=== PATIENT | female | born 1990 | race Caucasian/White ===

== ENCOUNTER 2016-09-14 19:54 | Emergency (ER) | payer BC, OTHER ==
[2016-09-14 20:22] VITALS: BMI 19.0
--- NOTE | 2016-09-14 21:17 | PDOC ---
History of Present Illness - General Chief Complaint: Palpitations Stated Complaint: PALPITATIONS Time Seen by Provider: 09/14/16 20:55 History Source: Patient - History of Present Illness Initial Comments: 09/14/16 21:13 26 year old female reports fast heart beat on and off since last night. patient returned from vacation reports drinking alcohol throughout for several days. denies chest pain, pleuritic pain, no OCP use. denies substance abuse. reports poor hydration. no pmhx Past History - Travel Traveled outside of the country in the last 30 days: No Close contact w/someone who was outside of country & ill: No - Past Medical History Allergies/Adverse Reactions: Allergies Allergy/AdvReac Type Severity Reaction Status Date / Time No Known Allergies Allergy Verified 09/14/16 20:19 Home Medications: Ambulatory Orders NK [No Known Home Medication] 09/14/16 Other medical history: Pt denies - Psycho/Social/Smoking Cessation Hx Suicidal Ideation: No Smoking History: Never smoked Information on smoking cessation initiated: No Hx Alcohol Use: No Drug/Substance Use Hx: No Substance Use Type: None Cardiac Specific PMH - Complaint Specific PMHX Abdominal Aortic Aneurysm: No Angina: No Cardiac Arrhythmia: No Cardiac Stent: No GERD: No Myocardial Infarction: No Pacemaker: No Pulmonary Embolus: No Valvular Heart Disease: No Peripheral Vascular Disease: No Review of Systems - Review of Systems Able to Perform ROS?: Yes Is the patient limited Portuguese proficient: No HEENTM: No: Symptoms Reported, See HPI, Eye Pain, Blurred Vision, Tearing, Recent change in vision, Double Vision, Cataracts, Ear Pain, Ocular Prothesis, Ear Discharge, Nose Pain, Nose Congestion, Tinnitus, Nose Bleeding, Hearing Loss , Throat Pain, Throat Swelling, Mouth Pain, Dental Problems, Difficulty Swallowing, Mouth Swelling, Other Respiratory: No: Symptoms reported, See HPI, Cough, Orthopnea, Shortness of Breath, SOB with Exertion, SOB at Rest, Stridor, Wheezing, Productive cough, Hemoptysis, Other Cardiac (ROS): Yes: Palpitations. No: Symptoms Reported, See HPI, Chest Pain, Edema, Irregular Heart Rate, Lightheadedness, Syncope, Chest Tightness, Other ABD/GI: No: Symptoms Reported, See HPI, Abdominal Distended, Abd. Pain w/ defecation, Blood Streaked Bowels, Constipated, Diarrhea, Difficulty Swallowing , Nausea, Poor Appetite, Poor Fluid Intake, Rectal Bleeding, Vomiting, Indigestion, Abdominal cramping, Tarry Stools, Other Musculoskeletal: No: Symptoms Reported, See HPI, Back Pain, Gout, Joint Pain, Joint Swelling, Muscle Pain, Muscle Weakness, Neck Pain, Joint Stiffness, Other *Physical Exam - Vital Signs Last Vital Signs Temp Pulse Resp BP Pulse Ox 97.9 F 89 20 137/82 100 09/14/16 20:20 09/14/16 20:20 09/14/16 20:20 09/14/16 20:20 09/14/16 20:20 09/14/16 21:16 - Physical Exam General Appearance: Yes: Appropriately Dressed HEENT: positive: Normal ENT Inspection Respiratory/Chest: positive: Lungs Clear, Normal Breath Sounds Cardiovascular: positive: Regular Rhythm, Regular Rate, S1, S2 Gastrointestinal/Abdominal: positive: Normal Bowel Sounds, Soft Extremity: positive: Normal Capillary Refill, Normal Inspection, Normal Range of Motion Integumentary: positive: Normal Color, Dry, Warm Neurologic: positive: Fully Oriented, Alert, Normal Mood/Affect Heart Score/ECG Review - ECG Intrepretation Rhythm: Regular Rhythm Comment:: 09/14/16 21:46 sinus rhythm with sinus arrythmia Progress Note - Progress Note Progress Note: A: palpitations P: EKG CBC CMP IVF UA urine Medical Decision Making - Medical Decision Making 09/14/16 21:45 patient signed out AMA refuse all blood work and further workup. all risk factors discussed with patient *DC/Admit/Observation/Transfer Diagnosis at time of Disposition: Palpitations - Discharge Dispostion Disposition: AGAINST MEDICAL ADVICE - Referrals Referrals: Alicia Pitt [Primary Care Provider] -
--- NOTE | 2016-09-14 21:41 | PDOC ---
*Physical Exam - Vital Signs Last Vital Signs Temp Pulse Resp BP Pulse Ox 97.9 F 89 20 137/82 100 09/14/16 20:20 09/14/16 20:20 09/14/16 20:20 09/14/16 20:20 09/14/16 20:20 Medical Decision Making - Medical Decision Making 09/14/16 21:40 agree with care from SCOTTY Castrejon *DC/Admit/Observation/Transfer Diagnosis at time of Disposition: Palpitations - Referrals Referrals: Alicia Pitt [Primary Care Provider] - - Patient Instructions - Post Discharge Activity
[2016-09-14 21:48] VITALS: BP 128/88; PULSE 87; TEMP 98.6
--- NOTE | 2016-09-15 10:30 | EKG ---
Test Reason : Blood Pressure : / mmHG Vent. Rate : 074 BPM Atrial Rate : 074 BPM P-R Int : 166 ms QRS Dur : 084 ms QT Int : 394 ms P-R-T Axes : 031 052 027 degrees QTc Int : 437 ms SINUS RHYTHM WITH MARKED SINUS ARRHYTHMIA OTHERWISE NORMAL ECG NO PREVIOUS ECGS AVAILABLE Confirmed by ROMARIO ONTIVEROS, LULY ([id number]) on 09/15/2016 10:30:23 AM Referred By: Confirmed By:LULY DOSS MD
== END 2016-09-14 21:47 | disposition left against medical advice (07) ==
LOC: JER 19:54
DX: R00.2 Palpitations (principal)
CPT/HCPCS: 93005; 93010; 99284-25

== ENCOUNTER 2019-06-17 11:46 | Emergency (ER) | payer SELFPAY ==
[2019-06-17] MEDS ORDERED: ACETAMINOPHEN 325 MG TABLET (FP) PO ONE (11:50)
[2019-06-17 11:51] VITALS: BP 141/85; PULSE 69; TEMP 97.6; BMI 19.8
--- NOTE | 2019-06-17 11:56 | PDOC ---
History of Present Illness - General Chief Complaint: Pain, Acute Stated Complaint: RIGHT FOOT PAIN Time Seen by Provider: 06/17/19 11:50 - History of Present Illness Initial Comments: Sima Gilmore is a 28 y/o female with no reported PMH presenting today with right foot pain. Reports that she was jogging yesterday afternoon when she tripped forward and hurt her right foot. No head trauma/LOC. No heart palpitations or dizziness. She was able to get back up, but reports that the pain has been worsening. Has not taken anything for pain. Reports right mid foot pain. No ankle pain. Not able to bear weight. Reports prior sprains before but no ankle fracture or ligament tears in the past before. Denies knee pain. Denies pain anywhere else. Past History - Past Medical History Allergies/Adverse Reactions: Allergies Allergy/AdvReac Type Severity Reaction Status Date / Time No Known Allergies Allergy Verified 06/17/19 11:47 Home Medications: Ambulatory Orders NK [No Known Home Medication] 09/14/16 COPD: No - Psycho Social/Smoking Cessation Hx Smoking History: Current some day smoker Information on smoking cessation initiated: Yes Hx Alcohol Use: No Drug/Substance Use Hx: No Substance Use Type: None Review of Systems - Review of Systems Comments:: GENERAL/CONSTITUTIONAL: No fever or chills. No weakness._ HEAD, EYES, EARS, NOSE AND THROAT: No change in vision. No change in hearing. No sore throat._ CARDIOVASCULAR: No chest pain or shortness of breath_ RESPIRATORY: Denies cough, hemoptysis_ GASTROINTESTINAL: No nausea, vomiting, diarrhea or constipation._ GENITOURINARY: No dysuria, frequency, or change in urination._ MUSCULOSKELETAL: Reports right mid foot pain. No neck or back pain._ SKIN: No rash_ NEUROLOGIC: No headache, vertigo, loss of consciousness, or change in strength/sensation._ ALLERGIC/IMMUNOLOGIC: No hives or skin allergy._ *Physical Exam - Vital Signs Last Vital Signs Temp Pulse Resp BP Pulse Ox 97.6 F 69 15 141/85 100 06/17/19 11:47 06/17/19 11:47 06/17/19 11:47 06/17/19 11:47 06/17/19 11:47 - Physical Exam GENERAL: Awake, alert, and oriented to person/place/time, in no acute distress_ HEAD: No signs of trauma, normocephalic, atraumatic _ EYES: PERRLA, EOMI, sclera anicteric, conjunctiva clear_ ENT: Hearing grossly normal, nares patent, oropharynx clear without exudates. No uvular deviation. Moist mucosa_ NECK: Normal ROM, supple, no lymphadenopathy, JVD, or masses_ LUNGS: No distress, speaks in full sentences, clear to auscultation bilaterally _ HEART: Regular rate and rhythm, normal S1 and S2, no murmurs appreciated, peripheral pulses normal and equal bilaterally._ ABDOMEN: Soft, nontender, normoactive bowel sounds. No guarding, no rebound. No masses_ EXTREMITIES: Bruising and tenderness over right mid foot. No ankle tenderness. No heel tenderness. Cap refill < 2 sec. Not able to ambulate. No knee tenderness or laxity. No lower extremity swelling. Full ROM throughout bilateral lower extremities. Sensation intact throughout bilateral lower extremities. NEUROLOGICAL: Cranial nerves II through XII grossly intact. Normal speech, normal gait, no focal sensorimotor deficits _ SKIN: Warm, Dry, normal turgor, no rashes or lesions noted_ ED Treatment Course - RADIOLOGY Radiology Studies Ordered: Category Date Time Status ANKLE & FOOT-RIGHT* [RAD] Stat Radiology 06/17/19 11:50 Ordered Medical Decision Making - Medical Decision Making 06/17/19 11:57 28F no reported PMH presenting with right mid foot pain after falling while jogging yesterday. Not able to bear weight. -XR right foot/ankle -tylenol 06/17/19 12:31 XR right foot and ankle shows no fracture or dislocation. Plan to d/c home with ortho f/u, hard sole shoe, crutches. Tylenol PRN. All questions answered. Return precautions given. Pt verbalized understanding and agreement with plan. Discharge - Discharge Information Problems reviewed: Yes Clinical Impression/Diagnosis: Right foot sprain Condition: Stable Disposition: HOME - Admission No - Follow up/Referral Referrals: Fausto Pantoja MD [Staff Physician] - - Patient Discharge Instructions Patient Printed Discharge Instructions: DI for Foot Sprain Additional Instructions: Please make a follow up appointment with Dr. Pantoja (ortho) this week. Please wear your hard sole shoe and uses crutches, and rest, ice, compress your foot. Take Tylenol as needed for pain relief (follow instructions on the package). If you experience any new, worsening, or concerning symptoms, including worsening pain, change in color or temperature of your foot, or any other concerns, please return to the emergency department. - Post Discharge Activity
[2019-06-17] MEDS ORDERED: ACETAMINOPHEN 325 MG TABLET (FP) ONE (11:58)
--- NOTE | 2019-06-17 13:01 | PDOC ---
Attending Attestation - Resident Resident Name: Leo Gracia - ED Attending Attestation I have performed the following: I have examined & evaluated the patient, The case was reviewed & discussed with the resident, I agree w/resident's findings & plan, Exceptions are as noted - HPI HPI: 06/17/19 12:30 28 years old twisted right foot while running Pain is moderate persistent constant worse with ambulation alleviated somewhat by rest. - Physicial Exam PE: 06/17/19 13:01 Vitals: Triage Vital signs reviewed General Appearance: No acute distress, well nourished well developed, Head: Atraumatic, Extremities: Full range of motion to all extremities tenderness to palpation over the front midfoot no swelling no deformity neurovascular tach distally Skin: Warm and dry, no rashes or lesions, no rash, no petechiae Psych: Normal mood, normal affect - Medical Decision Making 06/17/19 13:01 X-rays negative for acute fracture dislocation likely midfoot sprain placed in h lisa sole shoe given crutches provided with orthopedic follow-up Findings, the need for follow-up and strict return instructions discussed with patient.
== END 2019-06-17 12:42 | disposition home or self-care (01) ==
LOC: FER 11:46
DX: S93.601A Unspecified sprain of right foot, initial encounter (principal); W01.0XXA Fall on same level from slipping, tripping and stumbling without subsequent striking against object, initial encounter; Y93.89 Activity, other specified; Y92.89 Other specified places as the place of occurrence of the external cause
CPT/HCPCS: 73610-TC-RT-FY; 73630-TC-RT-FY; 99283-25

== ENCOUNTER 2022-09-15 20:00 | Inpatient (IN) | payer OTHER ==
[2022-09-15] MEDS ORDERED: DEXTROSE 5%-LACTATED RINGERS 1,000 ML IV SCH (21:15)
[2022-09-15] MEDS ORDERED: DINOPROSTONE 10 MG VAGINAL SUPPOSITORY VG ONE (21:15)
[2022-09-15 21:55] LABS: POTASSIUM 3.6 mmol/L (3.5-5.1)
[2022-09-15 21:56] LABS: CALCIUM 9.1 mg/dL (8.5-10.1)
[2022-09-15 21:57] LABS: BASO % 0.3 % (0-2.0); BLOOD UREA NITROGEN 13.6 mg/dL (7-18); EOS % 1.9 % (0-4.5); HEMOGLOBIN 13.1 GM/dL (10.7-15.3); LYMPH % 19.2 % (8-40); MCH 30.2 pg (25.7-33.7); MCHC 34.5 g/dl (32.0-36.0); MEAN CELL VOLUME 87.5 fl (80-96); MEAN PLT VOLUME 7.3 fl (7.5-11.1); MONO % 8.6 % (3.8-10.2); PLATELET COUNT 346 10^3/uL (134-434); RBC 4.34 M/mm3 (3.60-5.2); RDW 13.4 % (11.6-15.6); WHITE BLOOD COUNT 14.2 K/mm3 (4.0-10.0)
[2022-09-15 21:59] LABS: CREATININE 0.8 mg/dL (0.55-1.3)
[2022-09-15 22:03] LABS: INR 0.92 (0.83-1.09); PROTHROMBIN TIME (PATIENT) 10.7 SEC (9.7-13.0)
[2022-09-15 22:06] LABS: ACTIVATED PTT 28.8 SECONDS (25.2-36.5)
[2022-09-15 22:19] VITALS: BMI 28.1
[2022-09-16] MEDS ORDERED: AMPICILLIN - 2 GM in SODIUM CHLORIDE 100 ML IVPB ONE (07:30)
[2022-09-16] MEDS ORDERED: OXYTOCIN 30 UNITS in 0.9% NS 30 UNIT/500 ML INFUS.BAG IVPB SCH ×2 (07:35→09:00)
[2022-09-16] MEDS ORDERED: AMPICILLIN SODIUM 2 GM VIAL ONE (07:36)
[2022-09-16] MEDS ORDERED: SODIUM CHLORIDE 100 ML IVPB ONE ×3 (07:36→16:55)
[2022-09-16] MEDS ORDERED: OXYTOCIN 30 UNITS in 0.9% NS 30 UNIT/500 ML INFUS.BAG IVPB ONE (08:16)
[2022-09-16] MEDS ORDERED: AMPICILLIN SODIUM 1 GM VIAL ONE ×3 (11:42→19:25)
[2022-09-16] MEDS: AMPICILLIN - 1 GM in SODIUM CHLORIDE 100 ML IVPB SCH ×4 (11:45→23:35)
[2022-09-16] MEDS ORDERED: FENTANYL/BUPIVACAINE/NS/PF - PCEA - 50 ML DISP.SYRIN EP ONE ×2 (13:39→18:14)
[2022-09-16] MEDS ORDERED: FENTANYL CITRATE/PF 50 MCG/ML VIAL ONE (13:40)
[2022-09-16] MEDS: DEXTROSE 5%-LACTATED RINGERS 1,000 ML IV SCH ×2 (13:40→18:20)
[2022-09-16] MEDS ORDERED: BUPIVACAINE HCL/PF 0.25% (2.5MG/ML) 10 ML VIAL ONE (13:41)
[2022-09-16] MEDS ORDERED: LIDO 2%/EPI 1:200000 PRESRVFRE (20 ML SDVIAL) ONE (13:41)
[2022-09-16] MEDS: FENTANYL/BUPIVACAINE/NS/PF - PCEA - 50 ML DISP.SYRIN EP SCH ×2 (14:00→18:20)
[2022-09-16] MEDS ORDERED: NALOXONE HCL 0.4 MG/ML VIAL IVPUSH PRN (14:04)
[2022-09-16] MEDS ORDERED: LIDOCAINE HCL 1% PRESERVATIVE FREE - 30ML VIAL ONE (19:37)
[2022-09-16] MEDS ORDERED: OXYTOCIN 20 UNITS in 0.9% NS 20 UNIT/1,000 ML INFUS.BAG IV ONE (19:37)
[2022-09-16] MEDS ORDERED: BENZOCAINE 20% 57 GM BOTTLE TP PRN (20:02)
[2022-09-16] MEDS ORDERED: BISACODYL 10 MG SUPP.RECT RC PRN (20:02)
[2022-09-16] MEDS ORDERED: METHYLERGONOVINE MALEATE 0.2 MG/1 ML AMP IM PRN (20:02)
[2022-09-16] MEDS ORDERED: WITCH HAZEL 50% (TUCKS) 40 PAD/JAR PAD TP PRN (20:02)
[2022-09-16] MEDS ORDERED: BENZOCAINE 28 GM HEMORRHOIDAL OINTMENT TP PRN (20:02)
[2022-09-16] MEDS ORDERED: OXYTOCIN 20 UNITS in 0.9% NS 20 UNIT/1,000 ML INFUS.BAG IV SCH (20:15)
[2022-09-16] MEDS ORDERED: oxyCODONE HCL 5 MG TABLET ONE (21:38)
[2022-09-16] MEDS: oxyCODONE HCL 5 MG TABLET PO PRN (21:40)
[2022-09-17] MEDS: IBUPROFEN 600 MG TABLET (FP) PO PRN ×2 (00:40→20:34)
[2022-09-17 07:13] LABS: BASO % 0.2 % (0-2.0); EOS % 0.6 % (0-4.5); HEMATOCRIT 35.8 % (32.4-45.2); HEMOGLOBIN 12.4 GM/dL (10.7-15.3); LYMPH % 14.3 % (8-40); MCH 30.4 pg (25.7-33.7); MCHC 34.6 g/dl (32.0-36.0); MEAN CELL VOLUME 88.1 fl (80-96); MEAN PLT VOLUME 7.3 fl (7.5-11.1); MONO % 11.3 % (3.8-10.2); NEUT % 73.6 % (42.8-82.8); PLATELET COUNT 260 10^3/uL (134-434); RBC 4.06 M/mm3 (3.60-5.2); RDW 13.6 % (11.6-15.6)
[2022-09-17] MEDS: oxyCODONE HCL 5 MG TABLET PO PRN ×2 (07:35→13:13)
[2022-09-17] MEDS: ACETAMINOPHEN 325 MG TABLET (FP) PO PRN ×2 (08:27→14:36)
[2022-09-17] MEDS: PRENATAL VITAMINS W/ FOLIC ACID TABLET (FP) PO SCH (09:14)
[2022-09-17 20:35] VITALS: TEMP 98.1
[2022-09-17] MEDS ORDERED: SENNOSIDES/DOCUSATE COMBO (SENNA PLUS) TABLET (UD) PO PRN (22:00)
[2022-09-18] MEDS: PRENATAL VITAMINS W/ FOLIC ACID TABLET (FP) PO SCH (09:28)
[2022-09-18] MEDS: IBUPROFEN 600 MG TABLET (FP) PO PRN (09:28)
[2022-09-18 11:10] VITALS: BP 145/86; PULSE 74; RESP 16
== END 2022-09-18 13:45 | disposition home or self-care (01) | DRG 807 ==
LOC: JLDR 20:00 → J3W 09-16 22:48
PROVIDERS: ADMIT Obstetrics & Gynecology; ATTEND Obstetrics & Gynecology
PROC: 10E0XZZ Delivery of Products of Conception, External Approach (ICD-10-PCS; principal; 2022-09-16)
PROC: 0W8NXZZ Division of Female Perineum, External Approach (ICD-10-PCS; 2022-09-16)
PROC: 3E0P7VZ Introduction of Hormone into Female Reproductive, Via Natural or Artificial Opening (ICD-10-PCS; 2022-09-16)
DX: O48.0 Post-term pregnancy (principal); Z37.0 Single live birth; Z3A.41 41 weeks gestation of pregnancy
CPT/HCPCS: 36415; 80048; 85025; 85610; 85730; 86780; 86850; 86900; 86901